=== PATIENT | female | born 1995 | race American Indian/Alaskan Native ===

== ENCOUNTER 2020-08-09 18:39 | Emergency (ER) | payer SELFPAY ==
--- NOTE | 2020-08-09 19:25 | Emergency Department Report ---
Blank Doc - Documentation Documentation: 25-year-old female that presents with pelvic pain and urinary changes. This initial assessment/diagnostic orders/clinical plan/treatment(s) is/are subject to change based on patient's health status, clinical progression and re- assessment by fellow clinical providers in the ED. Further treatment and workup at subsequent clinical providers discretion. Patient/guardians urged not to elope from the ED as their condition may be serious if not clinically assessed and managed. Initial orders include: 1- Patient sent to [facility] for further evaluation and treatment 2- UA 3- labs
[2020-08-09 20:38] LABS: Basophils # (Auto) 0.1 K/mm3 (0.0-0.1); Basophils % (Auto) 0.9 % (0.0-1.8); Eosinophils # (Auto) 0.3 K/mm3 (0.0-0.4); Eosinophils % (Auto) 2.9 % (0.0-4.3); Hemoglobin 14.2 gm/dl (10.1-14.3); Lymphocytes # (Auto) 3.5 K/mm3 (1.2-5.4); Lymphocytes % (Auto) 38.7 % (13.4-35.0); Mean Corpuscular HGB Conc 34 % (30-34); Mean Corpuscular Volume 93 fl (79-97); Monocytes # (Auto) 0.7 K/mm3 (0.0-0.8); Monocytes % (Auto) 7.3 % (0.0-7.3); Platelet Count 258 K/mm3 (140-440); Red Blood Count 4.53 M/mm3 (3.65-5.03); Red Cell Distribution Width 13.8 % (13.2-15.2)
[2020-08-09 20:58] LABS: Alanine Aminotransferase 18 units/L (7-56); Albumin 4.6 g/dL (3.9-5); Blood Urea Nitrogen 16 mg/dL (7-17); Calcium 9.9 mg/dL (8.4-10.2); Hemolysis Index 1
[2020-08-09 21:02] VITALS: BP 114/72
[2020-08-09 21:03] LABS: BUN/Creatinine Ratio 23
[2020-08-09 21:09] LABS: HCG Qualitative,Urine Negative (Negative)
[2020-08-09 21:11] LABS: Bacteria,Urine 1+ /HPF (Negative); Bilirubin,Urine NEG (Negative); Blood,Urine NEG (Negative); Color,Urine Yellow (Yellow); Mucus,Urine FEW /HPF; Protein,Urine <15 mg/dL mg/dL (Negative); Urobilinogen,Urine < 2.0 mg/dL (<2.0)
== END 2020-08-10 02:40 | disposition left against medical advice (07) ==
LOC: ED 18:39
DX: N39.0 Urinary tract infection, site not specified (principal); Z53.21 Procedure and treatment not carried out due to patient leaving prior to being seen by health care provider
CPT/HCPCS: 36415; 80053; 81001; 81025; 85025

== ENCOUNTER 2020-08-11 13:44 | Emergency (ER) | payer SELFPAY ==
[2020-08-11 16:00] LABS: HCG Qualitative,Urine Negative (Negative)
[2020-08-11 16:07] LABS: Bacteria,Urine 1+ /HPF (Negative); Bilirubin,Urine NEG (Negative); Blood,Urine NEG (Negative); Color,Urine Yellow (Yellow); Mucus,Urine 1+ /HPF; Protein,Urine <15 mg/dL mg/dL (Negative)
--- NOTE | 2020-08-11 17:58 | Emergency Department Report ---
ED Female HPI - General Chief complaint: Urogenital-Female Stated complaint: POSS UTI Time Seen by Provider: 08/11/20 17:18 Source: patient Mode of arrival: Ambulatory Limitations: No Limitations - History of Present Illness Complaint: vaginal discharge, dysuria -: Gradual Location: suprapubic Radiation: suprapubic Severity: mild Quality: dull Consistency: constant Improves with: none Worsens with: none Are you Now?: No Associated Symptoms: vaginal discharge - Related Data Sexually active: No Previous Rx's Medication Instructions Recorded Last Taken Type metroNIDAZOLE [Flagyl] 2,000 mg PO ONCE #4 tablet 08/11/20 Unknown Rx Allergies Allergy/AdvReac Type Severity Reaction Status Date / Time Penicillins Allergy Unknown Verified 07/10/20 18:32 ED Review of Systems ROS: Stated complaint: POSS UTI Other details as noted in HPI Comment: All other systems reviewed and negative ED Past Medical Hx - Past Medical History Previous Medical History?: Yes Additional medical history: PCOS - Surgical History Past Surgical History?: Yes Additional Surgical History: tonsillectomy - Social History Smoking Status: Never Smoker Substance Use Type: Alcohol - Medications Home Medications: Home Medications Medication Instructions Recorded Confirmed Last Taken Type metroNIDAZOLE [Flagyl] 2,000 mg PO ONCE #4 tablet 08/11/20 Unknown Rx ED Physical Exam - General Limitations: No Limitations General appearance: alert, in no apparent distress - Head Head exam: Present: atraumatic, normocephalic - Eye Eye exam: Present: normal appearance - ENT ENT exam: Present: mucous membranes moist - Neck Neck exam: Present: normal inspection - Respiratory Respiratory exam: Present: normal lung sounds bilaterally. Absent: respiratory distress - Cardiovascular Cardiovascular Exam: Present: regular rate, normal rhythm. Absent: systolic murmur, diastolic murmur, rubs, gallop - GI/Abdominal GI/Abdominal exam: Present: soft, normal bowel sounds - Speculum exam: Present: vaginal discharge, cervical discharge Bi-manual exam: Present: other (With odor. No cervical wall motion tenderness. No lymphadenopathy no bleeding. Machine Sizer was Debbie) - Extremities Exam Extremities exam: Present: normal inspection - Back Exam Back exam: Present: normal inspection - Neurological Exam Neurological exam: Present: alert, oriented X3, CN II-XII intact, normal gait - Psychiatric Psychiatric exam: Present: normal affect, normal mood - Skin Skin exam: Present: warm, dry, intact, normal color. Absent: rash ED Medical Decision Making - Medical Decision Making 25-year-old female with no significant past medical history presents emergency department complaining of dysuria and vaginal discharge with suspicion of an STD which is been present for the past few days. No fevers chills or sweats no chest pain or palpitation no nausea vomiting no hematemesis no hematochezia. Critical care attestation.: If time is entered above; I have spent that time in minutes in the direct care of this critically ill patient, excluding procedure time. ED Disposition Clinical Impression: Vaginitis Disposition: DC-01 TO HOME OR SELFCARE Is pt being admited?: No Does the pt Need Aspirin: No Condition: Stable Instructions: Vaginitis (ED), Bacterial Vaginosis (ED) Referrals: PRIMARY CARE, [Primary Care Provider] - 3-5 Days [facility] [Provider Group] - 3-5 Days
[2020-08-11 19:04] VITALS: BP 121/81
== END 2020-08-11 18:53 | disposition home or self-care (01) ==
LOC: ED 13:44
DX: N76.0 Acute vaginitis (principal); Z98.890 Other specified postprocedural states; Z88.0 Allergy status to penicillin; Z79.899 Other long term (current) drug therapy
CPT/HCPCS: 81001; 81025; 87086; 87210; 87591

== ENCOUNTER 2021-01-21 08:10 | Emergency (ER) | payer OTHER ==
[2021-01-21 08:16] VITALS: BP 109/52
[2021-01-21 10:14] LABS: HCG Qualitative,Urine Negative (Negative)
[2021-01-21 10:16] LABS: Bilirubin,Urine NEG (Negative); Blood,Urine NEG (Negative); Color,Urine Yellow (Yellow); Mucus,Urine 1+ /HPF; Protein,Urine <15 mg/dL mg/dL (Negative); Urobilinogen,Urine < 2.0 mg/dL (<2.0)
--- NOTE | 2021-01-21 10:21 | Emergency Department Report ---
ED General Adult HPI - General Chief complaint: Urogenital-Female Stated complaint: VAGINAL PROBLEMS Time Seen by Provider: 01/21/21 10:13 Source: patient Mode of arrival: Ambulatory Limitations: No Limitations - History of Present Illness Initial comments: 25-year-old female patient with history of PCOS and recurrent bacterial vaginosis presents to the emergency department with complaints of vaginal discharge and spotting for the last 2 days. Patient is sexually active with one partner. She is not currently on any form of contraceptive. States she is not concerned about STD exposure at this time. Symptoms are reminiscent of prior bacterial vaginosis infections. She just recently relocated to the area and does not yet have a local esthetics instructor. No current antibiotic use. Last menstrual period was 2 weeks ago. Denies fever, chills, abdominal pain, pelvic pain, dysuria, hematuria. Denies all other complaints at this time. - Related Data Previous Rx's Medication Instructions Recorded Last Taken Type Azithromycin [Zithromax TAB] 1,000 mg PO ONCE #2 tablet 08/11/20 Unknown Rx DOXYCYCLINE Hyclate [Vibramycin 100 mg PO BID #28 capsule 08/11/20 Unknown Rx CAP] metroNIDAZOLE [Flagyl] 2,000 mg PO ONCE #4 tablet 08/11/20 Unknown Rx metroNIDAZOLE [Flagyl] 500 mg PO Q12HR 7 Days tab 01/21/21 Unknown Rx Allergies Allergy/AdvReac Type Severity Reaction Status Date / Time Penicillins Allergy Unknown Verified 01/21/21 08:12 ED Review of Systems ROS: Stated complaint: VAGINAL PROBLEMS Other details as noted in HPI Other: GENERAL: Negative for fever, chills, weight change, anorexia, fatigue. ENT: Negative for ear pain, difficulty hearing, sore throat, nasal congestion, epistaxis. CARDIOVASCULAR: Negative for chest pain, palpitations, lower extremity swelling. PULMONARY: Negative for cough, dyspnea, wheezing, orthopnea, cyanosis. GASTROINTESTINAL: Negative for abdominal pain, nausea, vomiting, diarrhea, constipation. GENITOURINARY: Positive for vaginal bleeding and vaginal discharge. MUSCULOSKELETAL: Negative for joint pain, joint swelling, myalgias, back pain, neck pain. NEUROLOGICAL: Negative for headache, seizure, syncope, paresthesias, weakness. INTEGUMENTARY: Negative for erythema, rash, diaphoresis, laceration, ecchymosis. HEMATOLOGICAL: Negative for hemoptysis, hematemesis, hematochezia, hematuria. PSYCHIATRIC: Negative for hallucinations, suicidal ideation, homicidal ideation, anxiety, depression. ED Past Medical Hx - Past Medical History Additional medical history: PCOS - Surgical History Additional Surgical History: tonsillectomy - Social History Smoking Status: Never Smoker Substance Use Type: Alcohol - Medications Home Medications: Home Medications Medication Instructions Recorded Confirmed Last Taken Type Azithromycin [Zithromax TAB] 1,000 mg PO ONCE #2 tablet 08/11/20 Unknown Rx DOXYCYCLINE Hyclate [Vibramycin 100 mg PO BID #28 capsule 08/11/20 Unknown Rx CAP] metroNIDAZOLE [Flagyl] 2,000 mg PO ONCE #4 tablet 08/11/20 Unknown Rx metroNIDAZOLE [Flagyl] 500 mg PO Q12HR 7 Days tab 01/21/21 Unknown Rx ED Physical Exam - General Limitations: No Limitations - Other Other exam information: General: Awake and alert. No acute distress. Head: Atraumatic, normocephalic. Eyes: EOMI. Pupils are equal and round. Normal sclera and conjunctiva. ENT: Oral mucosa is moist. Normal pharyngeal exam. Neck: Supple. No lymphadenopathy. Pulmonary: No respiratory distress. Clear to auscultation bilaterally. Cardiac: Regular rate and rhythm. Pulses are palpable and equal bilaterally. No lower extremity cyanosis or edema. Skin: Warm and dry. No rashes. Abdomen: Soft, non-tender, non-protuberant. No guarding, rigidity, or rebound. Bowel sounds are normal. No organomegaly or masses noted. Pelvic: Female care clinician present. Normal external inspection. Cervical os is closed. There is no cervical motion tenderness. No blood in the vaginal vault. Moderate amount of thin white discharge. No adnexal tenderness or masses. No uterine tenderness. Back: Normal alignment. No CVA tenderness. Extremities: Symmetrical. Full range of motion intact. Neurological: Alert and oriented, appropriately interactive, no focal deficits. Psych: Cooperative. Appropriate mood and affect. Speech is evenly metered. Thoughts are logically construed. ED Course Vital Signs 01/21/21 01/21/21 08:13 11:33 Temperature 98.1 F Pulse Rate 73 Respiratory 20 18 Rate Blood Pressure 109/52 O2 Sat by Pulse 98 100 Oximetry ED Medical Decision Making - Medical Decision Making Differential diagnosis including but not limited to: UTI, pyelonephritis, pelvic inflammatory disease, tubo-ovarian abscess, bacterial vaginosis, vaginal candidiasis, Patient presents to emergency department with complaints of vaginal spotting and discharge for 2 days. She endorses a history of recurrent bacterial vaginosis. test is negative. UTI without evidence of urinary tract infection. Wet prep is consistent with bacterial vaginosis. Patient was offered STD screening/empiric treatment, but politely refused, citing she is not concerned about STD exposure. Patient will be discharged home with prescription for Flagyl. She has been referred to local esthetics instructor for close outpatient follow-up. Patient expressed understanding is agreeable to plan of care. Emphasized the importance of abstaining from alcohol use while taking Flagyl. Strict return precautions provided. Repeat exam is unremarkable and benign. History, exam, diagnostic testing, and current condition do not suggest worrisome pathology to warrant further testing, continued ED treatment, admission, or surgical evaluation at this point. Given the low probability of a significant medical illness, it would be more likely to result in harm than benefit to perform further testing at this stage. Discussed findings, presumptive diagnosis, need for follow-up and specific signs/symptoms that should prompt immediate return to the emergency department. Instructions were explained in detail to the patient in addition to giving written discharge information. Patient expressed understanding and was given the opportunity to ask questions, all of which were satisfactorily answered prior to discharge home. Critical care attestation.: If time is entered above; I have spent that time in minutes in the direct care of this critically ill patient, excluding procedure time. ED Disposition Clinical Impression: Bacterial vaginosis Disposition: DC-01 TO HOME OR SELFCARE Is pt being admited?: No Does the pt Need Aspirin: No Condition: Stable Instructions: Bacterial Vaginosis, [id number], Bacterial Vaginosis (ED) Additional Instructions: Take Flagyl with food as directed. Do not consume any alcohol while taking this medication. Follow with gynecology once antibiotics are complete. Call tomorrow to schedule an appointment. Return to the emergency department immediately for new or worsening symptoms. Prescriptions: metroNIDAZOLE [Flagyl] 500 mg PO Q12HR 7 Days tab Referrals: IVET KATHLEEN MD [Staff Physician] - 3-5 Days Forms: STI Treatment and Prevention Time of Disposition: 11:19
== END 2021-01-21 11:36 | disposition home or self-care (01) ==
LOC: ED 08:10
DX: N76.0 Acute vaginitis (principal); B96.89 Other specified bacterial agents as the cause of diseases classified elsewhere; Z88.0 Allergy status to penicillin; Z79.899 Other long term (current) drug therapy; Z90.49 Acquired absence of other specified parts of digestive tract
CPT/HCPCS: 81001; 81025; 87210

== ENCOUNTER 2021-02-09 17:56 | Emergency (ER) | payer SELFPAY ==
[2021-02-09 19:33] LABS: Bacteria,Urine 1+ /HPF (Negative); Bilirubin,Urine NEG (Negative); Blood,Urine MOD (Negative); Color,Urine Yellow (Yellow); Urobilinogen,Urine < 2.0 mg/dL (<2.0)
[2021-02-09 19:36] LABS: WBC,Urine > 182.0 /HPF (0.0-6.0)
--- NOTE | 2021-02-09 19:36 | Event Note ---
ED Screening Note Date of service: 02/09/21 Time: 19:35 ED Screening Note: 25-year-old female patient with history of recurrent UTIs and bacterial vaginosis presents to the emergency department with complaints of urinary discomfort, urinary frequency, lower back pain, and nausea for 2 days. Patient states that she has been on both Macrobid and Flagyl within the last 6 weeks. She did not complete the Macrobid as prescribed "because she kept forgetting to take it." Last menstrual period was 2 weeks ago. General: Awake, appropriately interactive, no acute distress. Neck: Supple. Full range of motion intact. Cardiovascular: Normal peripheral perfusion. Pulmonary: No respiratory distress. Patient is speaking normally without use of accessory muscles. Skin: No apparent rashes or lesions. Neurological: No facial asymmetry. Speech is clear. Follows commands. Patient is alert and oriented. Musculoskeletal: Moves all four extremities spontaneously with normal range of motion. Psych: Cooperative. Appropriate mood and affect. I have greeted and performed a focused rapid initial assessment of this patient. A comprehensive ED assessment and evaluation of the patient, analysis of all test results, and completion of the medical decision-making process will be conducted by additional ED providers. This initial assessment/diagnostic orders/clinical plan/treatment(s) is/are subject to change based on patients health status, clinical progression and re-assessment. Further treatment and workup at subsequent clinical provider's discretion. Patient/guardian urged not to elope from the ED as their condition may be serious if not clinically assessed and managed.
--- NOTE | 2021-02-09 21:20 | Emergency Department Report ---
ED General Adult HPI - General Chief complaint: Urogenital-Female Stated complaint: BACK PAIN/BLOOD IN URINE Time Seen by Provider: 02/09/21 21:18 Source: patient Mode of arrival: Ambulatory Limitations: No Limitations - History of Present Illness Initial comments: 25-year-old female with a history of recurrent UTIs and acne presents to the ER today with complaints of UTI symptoms. Patient states that her symptoms started about 4 days ago. She reports urinary frequency, dysuria, urinary odor, and cloudy urine which started about 4 to 5 days ago. She started with lower back pain 2 days ago and today started noticing blood in her urine. She reports lower abdominal discomfort intermittently as well as nausea. She denies any fever or chills. She denies any vomiting. She denies any abnormal vaginal discharge or bleeding. Her last menstrual cycle was towards the end of December. She is not any control. Last time she had a UTI was 2 to 3 months ago when she was treated with Macrobid. She has never been admitted for UTIs in the past. She has never followed up with a urologist in regards to her recurrent UTIs. MD Complaint: UTI symptoms/Low back Pain -: Gradual ( 4 days) - Related Data Previous Rx's Medication Instructions Recorded Last Taken Type Ibuprofen [Motrin] 800 mg PO Q8HR PRN #30 tablet 02/09/21 Unknown Rx Ondansetron [Zofran Odt] 4 mg PO Q8HR PRN #15 tab.rapdis 02/09/21 Unknown Rx Sulfamethoxazole/Trimethoprim 1 each PO BID #14 tablet 02/09/21 Unknown Rx [Bactrim DS TAB] Allergies Allergy/AdvReac Type Severity Reaction Status Date / Time Penicillins Allergy Unknown Verified 01/21/21 08:12 ED Review of Systems ROS: Stated complaint: BACK PAIN/BLOOD IN URINE Other details as noted in HPI Comment: All other systems reviewed and negative Constitutional: denies: chills, diaphoresis, fever, malaise Eyes: denies: eye pain, eye discharge, vision change ENT: denies: ear pain, throat pain Respiratory: denies: cough, shortness of breath, wheezing Endocrine: no symptoms reported Gastrointestinal: abdominal pain, nausea. denies: vomiting, diarrhea, constipation, hematemesis, melena, hematochezia Musculoskeletal: back pain Skin: denies: rash, lesions Neurological: denies: headache, weakness, paresthesias Psychiatric: denies: anxiety, depression, auditory hallucinations, visual hallucinations, homicidal thoughts, suicidal thoughts Hematological/Lymphatic: denies: easy bleeding, easy bruising, swollen glands ED Past Medical Hx - Past Medical History Previous Medical History?: No Additional medical history: PCOS - Surgical History Past Surgical History?: Yes Additional Surgical History: tonsillectomy - Social History Smoking Status: Never Smoker Substance Use Type: Alcohol - Medications Home Medications: Home Medications Medication Instructions Recorded Confirmed Last Taken Type Ibuprofen [Motrin] 800 mg PO Q8HR PRN #30 tablet 02/09/21 Unknown Rx Ondansetron [Zofran Odt] 4 mg PO Q8HR PRN #15 tab.rapdis 02/09/21 Unknown Rx Sulfamethoxazole/Trimethoprim 1 each PO BID #14 tablet 02/09/21 Unknown Rx [Bactrim DS TAB] ED Physical Exam - General Limitations: No Limitations General appearance: alert, in no apparent distress - Head Head exam: Present: atraumatic, normocephalic, normal inspection - Eye Eye exam: Present: normal appearance, PERRL, EOMI Pupils: Present: normal accommodation - Neck Neck exam: Present: normal inspection, full ROM - Respiratory Respiratory exam: Present: normal lung sounds bilaterally. Absent: respiratory distress - Cardiovascular Cardiovascular Exam: Present: regular rate, normal rhythm, normal heart sounds - GI/Abdominal GI/Abdominal exam: Present: soft. Absent: distended, tenderness, guarding - Back Exam Back exam: Present: normal inspection, full ROM, CVA tenderness (R) (mild ). Absent: CVA tenderness (L) - Neurological Exam Neurological exam: Present: alert, oriented X3, CN II-XII intact, normal gait - Psychiatric Psychiatric exam: Present: normal affect, normal mood - Skin Skin exam: Present: intact ED Course Vital Signs 02/09/21 18:35 Temperature 98.1 F Pulse Rate 81 Respiratory 16 Rate Blood Pressure 134/85 O2 Sat by Pulse 99 Oximetry ED Medical Decision Making - Lab Data Result diagrams: 02/09/21 21:33 02/09/21 21:33 - Medical Decision Making 25-year-old female with a history of recurrent UTIs and acne presents to the ER today with complaints of UTI symptoms. Patient states that her symptoms started about 4 days ago. She reports urinary frequency, dysuria, urinary odor, and cloudy urine which started about 4 to 5 days ago. She started with lower back pain 2 days ago and today started noticing blood in her urine. She reports lower abdominal discomfort intermittently as well as nausea. She denies any fever or chills. She denies any vomiting. She denies any abnormal vaginal discharge or bleeding. Her last menstrual cycle was towards the end of December. She is not any control. Last time she had a UTI was 2 to 3 months ago when she was treated with Macrobid. She has never been admitted for UTIs in the past. She has never followed up with a urologist in regards to her recurrent UTIs. 2247: Patient UA is positive for UTI, culture pending and her urine HCG was positive. CBC nl and CMP nl including less thant 2 quant HCG. Urine positive hcg was probably false positive. Patient is well appearing, not toxic and not in any distress. She is afebrile and her remaining VS stable. She appears well hydrated. She is neurologically intact with normal gait. At this time there is no indication for further work-up or admission. Patient will be discharged home with a prescription for antibiotics to treat her UTI, as well as medication for pain and nausea. Discussed lab results with patient, diagnosis and treatment plan with patient. Also discussed worsening signs and symptoms with patient and that she needs to return to the ER immediately if these signs and symptoms develop. Patient expressed understanding of instructions and agree with plan. Patient stable at time of discharge Critical care attestation.: If time is entered above; I have spent that time in minutes in the direct care of this critically ill patient, excluding procedure time. ED Disposition Clinical Impression: UTI (urinary tract infection) Disposition: DC-01 TO HOME OR SELFCARE Is pt being admited?: No Does the pt Need Aspirin: No Condition: Stable Instructions: Urinary Tract Infection, Adult Additional Instructions: Take the antibiotics as prescribed. Take the motrin and zofran as prescribed. Drink lots of water. Follow up with PCP in 1 week. Return to ED if worse. Prescriptions: Sulfamethoxazole/Trimethoprim [Bactrim DS TAB] 1 each PO BID #14 tablet Ibuprofen [Motrin] 800 mg PO Q8HR PRN #30 tablet PRN Reason: pain Ondansetron [Zofran Odt] 4 mg PO Q8HR PRN #15 tab.rapdis PRN Reason: Nausea Referrals: CHAVEZ MELVIN MD [Primary Care Provider] - 3-5 Days Forms: Work/School Release Form(ED) Time of Disposition: 22:41
[2021-02-09 21:27] LABS: HCG Qualitative,Urine Positive (Negative)
[2021-02-09 21:45] LABS: Basophils # (Auto) 0.1 K/mm3 (0.0-0.1); Eosinophils # (Auto) 0.2 K/mm3 (0.0-0.4); Eosinophils % (Auto) 2.3 % (0.0-4.3); Hemoglobin 14.7 gm/dl (10.1-14.3); Lymphocytes # (Auto) 3.3 K/mm3 (1.2-5.4); Lymphocytes % (Auto) 40.2 % (13.4-35.0); Mean Corpuscular HGB Conc 34 % (30-34); Mean Corpuscular Volume 94 fl (79-97); Monocytes # (Auto) 0.6 K/mm3 (0.0-0.8); Monocytes % (Auto) 7.6 % (0.0-7.3); Platelet Count 266 K/mm3 (140-440); Red Blood Count 4.58 M/mm3 (3.65-5.03); Red Cell Distribution Width 13.1 % (13.2-15.2)
[2021-02-09 22:08] LABS: Alanine Aminotransferase 16 units/L (7-56); Albumin 4.7 g/dL (3.9-5); Blood Urea Nitrogen 10 mg/dL (7-17); Calcium 9.7 mg/dL (8.4-10.2); Hemolysis Index 15
[2021-02-09 22:15] LABS: BUN/Creatinine Ratio 14
[2021-02-09 22:54] VITALS: BP 118/78
== END 2021-02-09 22:55 | disposition home or self-care (01) ==
LOC: ED 17:56
DX: N39.0 Urinary tract infection, site not specified (principal); Z79.899 Other long term (current) drug therapy; Z88.0 Allergy status to penicillin
CPT/HCPCS: 36415; 80053; 81001; 81025; 83690; 83735; 84702; 85025; 87086; 99283